=== PATIENT | male | born 1995 | race African-American/Black ===

== ENCOUNTER 2017-03-02 11:38 | Emergency (ER) | payer SELFPAY ==
[2017-03-02 11:40] VITALS: BP 134/76; PULSE 75; RESP 16; TEMP 99.3; O2SAT 98
[2017-03-02] MEDS ORDERED: predniSONE 20 MG TAB PO ONE (12:45)
[2017-03-02] MEDS ORDERED: FAMOTIDINE 20 MG TAB PO ONE (12:45)
[2017-03-02] MEDS ORDERED: diphenhydrAMINE HCL 25 MG CAP PO ONE (12:45)
--- NOTE | 2017-03-02 12:48 | PD ---
HPI Chief Complaint: Skin Problem Time Seen by Provider: 12:19 Travel History International Travel<30 days: No Contact w/Intl Traveler<30days: No Traveled to known affect area: No History of Present Illness HPI Patient comes in complaining of a pruritic rash bilateral upper extremities and anterior chest wall that began 2 days ago. Patient states that he had been using a new soap which he quit once the rash came on. Denies any other known new allergen exposures. Denies doing anything for this. Denies Anything making it better. States feels like it progressively got worse. Denies any fevers, weight loss, or being around anyone else with similar. Denies any radiation of the itching. PFSH Past Medical History Medical History: Denies Significant Hx Tetanus Vaccination: < 5 Years Past Surgical History Surgical History: No Previous Surgery Social History Alcohol Use: No Tobacco Use: No Substance Use: Yes (weed daily) Allergies-Medications (Allergen,Severity, Reaction): Coded Allergies: No Known Allergies (Unverified , 03/02/17) Review of Systems Except as stated in HPI: all other systems reviewed are Neg Physical Exam Narrative GENERAL: Well-developed, well nourished, in no acute distress, and non-ill appearing. SKIN: Patient has multiple problems noted on left upper extremity anterior left chest. Patient lesion on the dorsal aspect of her right hand. Rash is appears to be be mild form of molluscum contagiosum. Rash is not consistent with scabies, folliculitis, tingling, shingles, or cellulitis HEAD: Atraumatic. Normocephalic. EYES: Pupils equal and round. EOMI. No scleral icterus. No injection or drainage. ENT: No nasal bleeding or discharge. Mucous membranes pink and moist. NECK: Trachea midline. Supple. No nuclear rigidity. RESPIRATORY: No accessory muscle use. No respiratory distress. MUSCULOSKELETAL: No obvious deformities. No clubbing. No cyanosis. No edema. Full range of motion. NEUROLOGICAL: Awake and alert. No obvious cranial nerve deficits. Motor grossly within normal limits. Normal speech. PSYCHIATRIC: Appropriate mood and affect; insight and judgment normal. Data Data Last Documented VS Vital Signs Date Time Temp Pulse Resp B/P (MAP) Pulse Ox O2 Delivery O2 Flow Rate FiO2 03/02/17 11:40 99.3 75 16 134/76 (95) 98 Room Air Orders Orders Ed Discharge Order (03/02/17 12:35) Prednisone (Deltasone) (03/02/17 12:45) Famotidine (Pepcid) (03/02/17 12:45) Diphenhydramine (Benadryl) (03/02/17 12:45) [facility] Medical Decision Making Medical Screen Exam Complete: Yes Emergency Medical Condition: Yes Differential Diagnosis Allergic reaction, scabies, folliculitis, molluscum contagiosum, cellulitis, gangrene Narrative Course Patient presents with a rash consistent with molluscum contagiosum. The patient looks great and was non-ill appearing. There was no evidence to suggest scabies, cellulitis, folliculitis or abscess, Staph. Scalded Skin Syndrome, Toxic Shock, Toxic Epidermal necrolysis, Kawasakis, Measles, Rubella, cutaneous T cell lymphoma, Erythema Multiforme (minor or major). Plan of care was discussed with the patient and the patient is to follow up with their physician. The patient agreed with plan. Patient in no obvious distress upon re-evaluation. Any questions/concerns in reference to patient diagnosis/condition discussed and clarified prior to patient's discharge. Reinforced sheer importance of close follow up with patient 's primary physician or primary care clinic. Instructed patient to return to ED immediately, if symptoms return/worsen. Patient showed understanding of above instructions. Further instructions and recommendations were detailed in discharge paperwork. Patient ambulated without difficulty out of ED at discharge. Diagnosis Primary Impression: Molluscum contagiosum Referrals: [facility] Relations [facility] Patient Instructions: General Instructions, Molluscum Contagiosum (ED) Additional Instructions: Follow-up with your primary care physician and/or unit educator in 3-5 days for reevaluation. Use [id number] Claritin or Zyrtec or Benadryl as needed for symptomatic relief. Return to the emergency department if symptoms get worse. Disposition: 01 DISCHARGE HOME Condition: Stable Joe Dejesus Mar 02, 2017 12:48
== END 2017-03-02 13:23 | disposition home or self-care (01) ==
LOC: NEPK 11:38
DX: B08.1 Molluscum contagiosum (principal)
CPT/HCPCS: 99283; J7512

== ENCOUNTER 2017-05-28 23:19 | Emergency (ER) | payer SELFPAY ==
[~2017-05-28] VITALS: Ht 193 cm; Wt 70.0 kg
[2017-05-28 23:59] VITALS: BP 146/65; PULSE 65; RESP 16; TEMP 98.2; O2SAT 100
--- NOTE | 2017-05-29 03:13 | PD ---
HPI Chief Complaint: Skin Problem Time Seen by Provider: 03:10 Travel History International Travel<30 days: No Contact w/Intl Traveler<30days: No Traveled to known affect area: No History of Present Illness HPI 22-year-old black male presents emergency department with complaints of a rash of the past 3 months. He has used Benadryl and prednisone without relief. He states that other family members have had similar rashes appears to be more so on the hands and in the interdigital spaces. The rash is somewhat pruritic. It is diffusely on his body but more in the flexor creases of the skin and in his groin. He denies any fever chills. No nausea vomiting. No chemical exposures. PFSH Past Medical History Medical History: Denies Significant Hx Past Surgical History Surgical History: No Previous Surgery Social History Alcohol Use: No Tobacco Use: No Substance Use: Yes (weed daily) Allergies-Medications (Allergen,Severity, Reaction): Coded Allergies: No Known Allergies (Unverified , 03/02/17) Reported Meds & Prescriptions Reported Meds & Active Scripts Active No Active Prescriptions or Reported Medications Review of Systems Except as stated in HPI: all other systems reviewed are Neg Physical Exam Narrative GENERAL: Well-developed, well-nourished in no apparent distress. Nontoxic appearing. HEAD: Normocephalic, atraumatic. EYES: Pupils equal round and reactive. Extraocular motions intact. No scleral icterus. No injection or drainage. ENT: Nose clear. Throat without erythema, tonsillar hypertrophy or exudate. Uvula midline. Airway patent. NECK: Trachea midline. Supple, nontender, moves head freely. No central bony tenderness or spasm. CARDIOVASCULAR: Regular rate and rhythm without murmurs, gallops, or rubs. RESPIRATORY: Clear to auscultation. Breath sounds equal bilaterally. No wheezes , rales, or rhonchi. GASTROINTESTINAL: Abdomen soft, non-tender, nondistended. No hepato-splenomegaly , or palpable masses. No guarding. EXTREMITIES: No clubbing, cyanosis, or edema. No joint tenderness. BACK: Nontender without deformity. No flank tenderness. NEUROLOGICAL: Awake, alert and oriented x 3 .Cranial nerves grossly intact. Motor and sensory grossly within normal limits. Normal speech. Skin: Patient has multiple excoriated macular lesions and some maculopapular lesions on his upper extremities, axilla, interdigital spaces of the hand, belt line and groin. Data Data Last Documented VS Vital Signs Date Time Temp Pulse Resp B/P (MAP) Pulse Ox O2 Delivery O2 Flow Rate FiO2 05/28/17 23:59 98.2 65 16 146/65 (92) 100 Room Air Orders Orders Ed Discharge Order (05/29/17 03:10) MDM Medical Decision Making Medical Screen Exam Complete: Yes Emergency Medical Condition: Yes Medical Record Reviewed: Yes Differential Diagnosis MDM: High Differential diagnoses: Abscess, folliculitis, cellulitis, lymphangitis, abrasion, contact dermatitis, scabies Narrative Course This is scabies Diagnosis Primary Impression: Scabies Patient Instructions: General Instructions Additional Instructions: Rest. Medications as directed Follow-up with a medical doctor in 1 week. Med/Other Pt SpecificInfo: Prescription(s) given Scripts No Active Prescriptions or Reported Meds Disposition: 01 DISCHARGE HOME Condition: Stable Dash Yarbrough May 29, 2017 03:13
== END 2017-05-29 02:12 | disposition home or self-care (01) ==
LOC: NEPD 23:19
DX: B86 Scabies (principal); F12.90 Cannabis use, unspecified, uncomplicated
CPT/HCPCS: 99281